=== PATIENT | female | born 1955 | race Caucasian/White ===

== ENCOUNTER 2021-11-29 18:16 | Emergency (ER) | payer SELFPAY ==
[2021-11-29 19:02] VITALS: BP 167/68; PULSE 64; RESP 18; TEMP 98.9
--- NOTE | 2021-11-29 20:09 | XR ---
EXAMINATION TYPE: XR chest 2V DATE OF EXAM: 11/29/2021 7:37 PM COMPARISON: None TECHNIQUE: XR chest 2V Frontal view of the chest. CLINICAL INDICATION:Female, 65 years old with history of difficulty breathing; FINDINGS: Lungs/Pleura: Increased airspace opacities projecting over the heart. No pneumothorax or pleural effu carlos Pulmonary vascularity: Unremarkable. Heart/mediastinum: Cardiomediastinal silhouette is enlarged and stable. Musculoskeletal: No acute osseous pathology. Severe degeneration changes of the shoulders left greate r than right. IMPRESSION: Airspace opacities projecting over the the heart correlate for pneumonia.
== END 2021-11-29 21:19 | disposition left against medical advice (07) ==
LOC: EC 18:16
DX: Z53.21 Procedure and treatment not carried out due to patient leaving prior to being seen by health care provider (principal); R22.43 Localized swelling, mass and lump, lower limb, bilateral
CPT/HCPCS: 71046; 93005